=== PATIENT | female | born 2000 | race Caucasian/White ===

== ENCOUNTER → 2023-08-14 18:05 | Outpatient (REF) | payer OTHER, SELFPAY | LOC: MRI 3T 18:05 | PROVIDERS: ATTENDING PHYSICIAN Orthopaedic Surgery; FAMILY PHYSICIAN Internal Medicine | DX: M79.671 Pain in right foot (principal); M25.571 Pain in right ankle and joints of right foot | CPT/HCPCS: 73720; 73723; A9575 ==

== ENCOUNTER → 2023-08-15 18:10 | Outpatient (REF) | payer OTHER, SELFPAY | LOC: MRI 3T 18:10 | PROVIDERS: ATTENDING PHYSICIAN Orthopaedic Surgery; FAMILY PHYSICIAN Internal Medicine | DX: M25.572 Pain in left ankle and joints of left foot (principal); M25.672 Stiffness of left ankle, not elsewhere classified | CPT/HCPCS: 73720; 73723; A9575 ==

== ENCOUNTER → 2023-12-21 14:44 | Outpatient (REF) | payer OTHER, SELFPAY | LOC: RAD 14:44 | PROVIDERS: ATTENDING PHYSICIAN Obstetrics & Gynecology Gynecology; FAMILY PHYSICIAN Internal Medicine | DX: N92.0 Excessive and frequent menstruation with regular cycle (principal) | CPT/HCPCS: 76856 ==

== ENCOUNTER 2024-01-02 16:15 | Emergency (ER) | payer SELFPAY ==
[2024-01-02 16:19] VITALS: BP 152/98
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
== END 2024-01-02 18:10 | disposition home or self-care (01) ==
LOC: EMR 16:15
PROVIDERS: EMERGENCY PHYSICIAN Emergency Medicine; FAMILY PHYSICIAN Internal Medicine
DX: S09.90XA Unspecified injury of head, initial encounter (principal); S60.222A Contusion of left hand, initial encounter; S00.81XA Abrasion of other part of head, initial encounter; S00.31XA Abrasion of nose, initial encounter; H91.92 Unspecified hearing loss, left ear; R51.9 Headache, unspecified; V43.52XA Car driver injured in collision with other type car in traffic accident, initial encounter; W22.11XA Striking against or struck by driver side automobile airbag, initial encounter; Y92.410 Unspecified street and highway as the place of occurrence of the external cause; F90.9 Attention-deficit hyperactivity disorder, unspecified type; Z88.1 Allergy status to other antibiotic agents
CPT/HCPCS: 99284; 70450; 72125; 73130

== ENCOUNTER → 2024-01-14 16:57 | Outpatient (REF) | payer OTHER, SELFPAY | LOC: HWRAD 16:57 | PROVIDERS: ATTENDING PHYSICIAN Nurse Practitioner Family | DX: M54.2 Cervicalgia (principal) | CPT/HCPCS: 72052 ==

== ENCOUNTER 2024-09-15 11:23 | Emergency (ER) | payer OTHER, SELFPAY ==
[2024-09-15 11:35] VITALS: BP 136/98
[2024-09-15 11:55] LABS: % Basophils 0.9 % (0-2); % Eosinophils 0.3 % (0-6); % Immature Granulocytes 0.3 % (0-0.5); % Lymphocytes 16.1 % (20.5-51.1); % Monocytes 5.3 % (1.7-9.3); % Neutrophils 77.1 % (42.2-75.2); Absolute Basophils 0.1 10^3/uL (0-0.2); Absolute Lymphocytes 1.2 10^3/uL (1.2-3.4); Absolute Monocytes 0.4 10^3/uL (0.1-0.6); Absolute Neutrophils 5.8 10^3/uL (1.4-6.5); Hematocrit 42.4 % (37.0-47.0); Hemoglobin 14.5 g/dL (12.0-16.0); Mean Corp Hgb Conc. 34.2 g/dL (33.0-37.0); Mean Corpuscular Hgb 30.1 pg (27.0-31.0); Mean Corpuscular Volume 88.1 fL (81.0-99.0); Mean Platelet Volume 10.8 fL (7.4-10.4); Nucleated Red Blood Cells % 0 %; Platelet Count 258 10^3/uL (130-400); Red Blood Cell Count 4.81 10^6/uL (4.20-5.40); Red Cell Dist. Width 11.8 % (11.5-14.5); White Blood Cell Count 7.5 10^3/uL (4.8-10.8)
[2024-09-15 12:08] LABS: HCG, Serum Qualitative Screen Negative
[2024-09-15 12:17] LABS: Troponin I < 0.012 ng/ml
[2024-09-15 12:38] LABS: ALT (SGPT) 17 U/L (0-35); AST (SGOT) 25 U/L (14-36); Albumin 5.3 g/dl (3.5-5.0); Alkaline Phosphatase 68 U/L (38-126); Blood Urea Nitrogen 11 mg/dl (7-17); Calcium 9.9 mg/dl (8.4-10.2); Carbon Dioxide 22 mmol/L (22-30); Chloride 107 mmol/L (98-107); Glucose 94 mg/dl (70-99); Potassium 4.3 mmol/L (3.5-5.1); Sodium 140 mmol/L (135-145); Total Bilirubin 0.7 mg/dl (0.2-1.3); eGFR > 60.00
[2024-09-15 15:45] VITALS: BP 133/87
--- NOTE | 2024-09-15 16:16 | ED.GENMED ---
Addendum entered and electronically signed by Mahad Carlos, DO 09/15/24 21:24:
Physical Exam
General: no apparent distress, not acutely ill
Neck: supple. no meningeal signs. normal posterior pharynx
Heart: s1/s2 regular rate and rhythm, no murmur. equal radial
pulses.
HEENT: Pupils equal round reactive to light, EOMI
Lungs: no acute respiratory distress. clear bilaterally
Abdomen: normal bowel sounds. not tender. no CVAT
Neuro: alert and oriented. no focal neurological deficits cranial nerves II through XII intact
Skin: no rash
Psychiatric: well kept. interactive and cooperative
Extremities: no edema. no calf tenderness. negative homans. good distal pulses
Original Note:
History of Present Illness
General
Chief Complaint: Chest Pain
Source: patient and family
Exam Limitations: none
Time Seen by Provider: 09/15/24 15:57
Nursing documentation reviewed up to this point in time: agreed with
History of Present Illness
History of Present Illness:
Note:
CHIEF COMPLAINT(S)
Palpitations
HISTORY OF PRESENT ILLNESS
The patient is a 24-year-old female presenting with complaints of palpitations. She describes the onset as occurring last week with mild intensity, worsening yesterday, and being severe today. The palpitations are described as feeling like she is
exercising despite being at rest. There is no association with caffeine intake. Currently, the palpitations are intermittent, with the worst episode reported this morning. The patient denies current episodes of anxiety. She has been on
spironolactone for six months without prior issues.
ADDITIONAL HISTORY OBTAINED FROM SOURCES OTHER THAN THE PATIENT
According to her mother, the patient has not been exposed to insect or tick bites recently.
MEDICATIONS
Spironolactone (6 months duration)
PHYSICAL EXAM
- Vital signs reviewed.
- Nursing notes reviewed.
PLAN
The patient is advised to follow up with a kitchen help handyman if symptoms persist. Patient education was provided regarding the nature of her symptoms and potential anxiety-related palpitations. Discharge is planned with a review of drug interactions and
adverse effects.
DIFFERENTIAL DIAGNOSIS
The Differential Diagnosis includes, in no particular order and is not limited to:
- Arrhythmia
- Supraventricular tachycardia
- Anxiety-related palpitations
- Hyperthyroidism
- Anemia
- Electrolyte imbalance
- Mitral valve prolapse
- Pheochromocytoma
- Drug-induced palpitations
- Structural heart disease
CARE-UPDATE
09/15/24 - 16:12
Patient feels well and has normal labs with no signs of ischemia or electrolyte abnormalities, specifically noting potassium at 4.3. Patient is stable for discharge. Follow-up with primary care is advised, with the name of a kitchen help handyman to be
provided if symptoms persist for Holter monitor evaluation. No adverse reactions to spironolactone observed, including tachycardia or palpitations.
Disposition:
SUMMARY OF ENCOUNTER
The patient, a 24-year-old female, presented to the emergency department with complaints of palpitations that started mildly last week and worsened significantly today. The palpitations feel as though she is exercising while at rest, occur
intermittently, and were most severe this morning. She denies current episodes of anxiety and there is no indication that caffeine intake is associated. She has been on spironolactone for six months without prior issues.
DISPOSITION
The patient was discharged home in good condition.
PLAN
The patient was advised to follow-up with the primary care provider and potential cardiology consultation was recommended if symptoms persist. Patient education on symptoms and possible anxiety-related palpitations was provided, along with advice on
drug interactions and adverse effects.
MEDICATION RECONCILIATION
The patient has been taking spironolactone for the past six months without issues.
MEDICAL DECISION MAKING
1. Number & Complexity of Problems: Differential diagnoses considered include arrhythmia, supraventricular tachycardia, anxiety-related palpitations, hyperthyroidism, anemia, electrolyte imbalance, mitral valve prolapse, pheochromocytoma,
drug-induced palpitations, and structural heart disease.
2. Data Reviewed: Vital signs, nursing notes, and discussion with an independent source were reviewed. Labs showed normal levels, specifically potassium at 4.3, and no signs of ischemia or electrolyte abnormalities.
3. Risk: Consideration of admission was made due to the complexity and risk of possible arrhythmias. However, outpatient management with a Holter monitor is deemed appropriate based on stable vitals and normal lab results. Follow-up reliability with
kitchen help handyman consultation provides an additional safety net.
PATIENT EDUCATION AND COUNSELING
Patient was educated on the nature of her symptoms, potential anxiety-related palpitations, and importance of monitoring with the provided Holter monitor. Drug interactions and adverse effects of spironolactone were reviewed and discussed.
FOLLOW-UP INSTRUCTIONS
The patient was instructed to follow up with her primary care provider and a kitchen help handyman . She was informed about the signs and symptoms that would necessitate immediate medical attention.
PATHOLOGIES TO CONSIDER
- Arrhythmia
- Supraventricular tachycardia
- Anxiety-related palpitations
- Structural heart disease
Past History
Past History
ED Past Medical History: None
Phy Exam
Physical Exam
Physical Exam:
.
Scores
Heart Score for Chest Pain Patients
STEMI patient?: Not applicable
Course
Orders/Labs/Results
Orders:
Orders
09/15/24 11:25
Electrocardiogram (*1) Urgent
Reason for Study: Chest Pain
EKG- Treatment ONCE
09/15/24 11:38
Test Result ONCE
09/15/24 11:43
Complete Blood Count/With Diff Urgent
Comprehensive Metabolic Panel Urgent
HCG, Serum Qualitative Screen Urgent
Comment: Notify provider if positive test present
Troponin I Urgent
Abnormal Lab Results
09/15/24
11:43
MPV 10.8 H fL
(7.4-10.4)
Neutrophils % 77.1 H %
(42.2-75.2)
Lymphocytes % 16.1 L %
(20.5-51.1)
Albumin 5.3 H g/dl
(3.5-5.0)
09/15/24 11:43
09/15/24 11:43
Vital Signs
Initial and Last Documented VS:
Initial Vital Signs
Temp Pulse Resp BP Pulse Ox
98.8 F 74 18 136/98 99
09/15/24 11:35 09/15/24 11:35 09/15/24 11:35 09/15/24 11:35 09/15/24 11:35
Last Documented Vital Signs
Temp Pulse Resp BP Pulse Ox
98.8 F 91 27 133/87 99
09/15/24 11:35 09/15/24 16:01 09/15/24 16:00 09/15/24 15:45 09/15/24 16:00
*Pulse Oximetry
SaO2: 99
Oxygen Mode of Delivery: Room air
Patient hypoxic: no
*Critical Care Note
Total Time (30-74mins, 75-104mins- exclusive of procedures): Not Applicable
ED Attending Note
-
Portions of this chart may have been created with voice recognition software.� Occasional wrong word or��sound alike� substitutions may have occurred due to the inherent limitations of voice recognition software.
Discharge Plan
Departure
Patient Disposition: Home (Routine Discharge)
Date of Disposition: 09/15/24
Time of Disposition: 16:16
Patient with high blood pressure during this ER visit?: Yes
Condition: Good
Discharge Problem:
Palpitations
Instructions: Palpitations, BLOOD PRESSURE
Prescriptions:
No Action
oxycodone 5 mg tablet
5 mg PO Q6H PRN (Reason: severe pain) Qty: 8 0RF
Referrals:
Madelin Rico MD [Family Provider, Internal Medicine]
Abel Atkins MD [Active, Cardiology] - As needed
Interventions
Interventions:
*Risk Screen - Suicide Last Done: 09/15/24 11:37
*General Assessment Last Done: 09/15/24 11:37
*Neglect/Abuse Screening Last Done: 09/15/24 11:37
Discharge Date and Time
Print Language: [place]
== END 2024-09-15 16:27 | disposition home or self-care (01) ==
LOC: EMR 11:23
PROVIDERS: Student in an Organized Health Care Education/Training Program; EMERGENCY PHYSICIAN Emergency Medicine; FAMILY PHYSICIAN Internal Medicine
DX: R00.2 Palpitations (principal)
CPT/HCPCS: 99284; 80053; 84484; 84703; 85025; 93005

== ENCOUNTER → 2024-09-20 10:00 | Outpatient (REF) | payer OTHER, SELFPAY | LOC: RCS 10:00 | PROVIDERS: ATTENDING PHYSICIAN Nurse Practitioner Family | DX: R00.2 Palpitations (principal) | CPT/HCPCS: 93225; 93226 ==

== ENCOUNTER → 2024-09-23 14:45 | Outpatient (REF) | payer OTHER, SELFPAY | LOC: HWRCS 14:45 | PROVIDERS: ATTENDING PHYSICIAN Nurse Practitioner Family | DX: R00.2 Palpitations (principal) | CPT/HCPCS: 93306 ==

== ENCOUNTER 2025-03-05 09:38 | Emergency (ER) | payer OTHER, SELFPAY ==
[2025-03-05 09:42] VITALS: BP 143/99
--- NOTE | 2025-03-05 11:37 | ED.GENMED ---
History of Present Illness
General
Chief Complaint: Vaginal Bleeding
Time Seen by Provider: 03/05/25 11:30
History of Present Illness
History of Present Illness:
25-year-old female presents to the emergency department for evaluation of heavy vaginal bleeding beginning 4 days ago. This is her normal menstrual cycle in terms of time. She does note intermittent heavy periods but none recently. Last menstrual
cycle was 1 month prior. For the past day she has been changing a pad or tampon every 20 to 30 minutes with large clots being passed this morning. She reports dizziness and lightheadedness as well. No abdominal or pelvic pain. Does not take
blood thinners, has a documented history of thrombocytopenia but the patient is unaware of this finding
Past History
Past History
ED Past Medical History: None
Review of Systems
Review of Systems
Allergies reviewed?: Yes
All Other Systems: ROS reviewed and negative except as documented in HPI and ROS
Phy Exam
Physical Exam
Physical Exam:
GEN: Well appearing, NAD, WDWN
HEENT: Oral mucosa moist, no scleral icterus
Cardiac: Regular rate
Lung: No respiratory distress, no tachypnea
Abdomen: Soft, nontender
MSK: No gross deformity or injuries
Skin: Good color, no pallor or jaundice, no rashes
Neuro: AO x3, moves all extremities freely
Psych: Calm, cooperative
Course
Orders/Labs/Results
Orders:
Orders
03/05/25 11:37
Test Result ONCE
03/05/25 11:51
Type+Screen Urgent
Complete Blood Count/With Diff Urgent
Comprehensive Metabolic Panel Urgent
HCG, Serum Qualitative Screen Urgent
Abnormal Lab Results
03/05/25
11:51
MPV 10.8 H fL
(7.4-10.4)
03/05/25 11:51
03/05/25 11:51
Vital Signs
Initial and Last Documented VS:
Initial Vital Signs
Temp Pulse Resp BP Pulse Ox
98.5 F 79 20 143/99 100
03/05/25 09:42 03/05/25 09:42 03/05/25 09:42 03/05/25 09:42 03/05/25 09:42
Last Documented Vital Signs
Temp Pulse Resp BP Pulse Ox
98.5 F 79 20 143/99 100
03/05/25 09:42 03/05/25 09:42 03/05/25 09:42 03/05/25 09:42 03/05/25 11:38
MDM/Problems Addressed
MDM/Problems Addressed:
Patient has appointment with [employer] tomorrow. She is a benign abdominal exam and normal labs, it sounds as though the bleeding has improved after passage of clots this morning. hCG is negative. There is no indication for emergent ultrasound. Given
that she has follow-up with them tomorrow and is hemodynamically stable I see no indication at this time for hormonal therapy or TXA
*Pulse Oximetry
SaO2: 100
Oxygen Mode of Delivery: Room air
Patient hypoxic: no
*Critical Care Note
Total Time (30-74mins, 75-104mins- exclusive of procedures): Not Applicable
ED Attending Note
-
Portions of this chart may have been created with voice recognition software.� Occasional wrong word or��sound alike� substitutions may have occurred due to the inherent limitations of voice recognition software.
Discharge Plan
Departure
Patient Disposition: Home (Routine Discharge)
Date of Disposition: 03/05/25
Time of Disposition: 12:44
Patient with high blood pressure during this ER visit?: No
Discharge Problem:
Menorrhagia
Instructions: Heavy Periods (DC)
Prescriptions:
No Action
oxycodone 5 mg tablet
5 mg PO Q6H PRN (Reason: severe pain) Qty: 8 0RF
Activity Restrictions/Additional Instructions:
Follow up with your OBGYN tomorrow as planned
Your hemoglobin levels are normal
Interventions
Interventions:
*Risk Screen - Suicide Last Done: 03/05/25 09:42
*General Assessment Last Done: 03/05/25 09:42
*Neglect/Abuse Screening Last Done: 03/05/25 09:42
[facility] Fall Risk Assessment Tool Last Done: 03/05/25 12:14
*Nursing Disposition Last Done: 03/05/25 13:17
ED-Female Genitourinary Assessment Last Done: 03/05/25 12:14
Discharge Date and Time
Discharge Date/Time: 03/05/25 13:17
Print Language: [place]
[2025-03-05 11:59] LABS: Hematocrit 39.3 % (37.0-47.0); Hemoglobin 13.8 g/dL (12.0-16.0); Mean Corp Hgb Conc. 35.1 g/dL (33.0-37.0); Mean Corpuscular Volume 87.1 fL (81.0-99.0); Nucleated Red Blood Cells % 0 %; Platelet Count 212 10^3/uL (130-400); Red Cell Dist. Width 12.1 % (11.5-14.5)
[2025-03-05 12:20] LABS: HCG, Serum Qualitative Screen Negative
[2025-03-05 12:25] LABS: ALT (SGPT) 16 U/L (0-35); AST (SGOT) 27 U/L (14-36); Albumin 5.0 g/dl (3.5-5.0); Alkaline Phosphatase 70 U/L (38-126); Blood Urea Nitrogen 8 mg/dl (7-17); Calcium 9.7 mg/dl (8.4-10.2); Carbon Dioxide 27 mmol/L (22-30); Chloride 103 mmol/L (98-107); Glucose 83 mg/dl (70-99); Potassium 4.0 mmol/L (3.5-5.1); Sodium 139 mmol/L (135-145); Total Protein 7.9 g/dl (6.3-8.2); eGFR > 60.00
== END 2025-03-05 13:17 | disposition home or self-care (01) ==
LOC: EMR 09:38
PROVIDERS: Physician Assistant; EMERGENCY PHYSICIAN Emergency Medicine; FAMILY PHYSICIAN Internal Medicine
DX: N92.0 Excessive and frequent menstruation with regular cycle (principal)
CPT/HCPCS: 99283; 80053; 84703; 85025; 86850; 86900; 86901